=== PATIENT | female | born 1940 | race Caucasian/White ===

== ENCOUNTER → 2017-01-11 | Outpatient (CLI) | payer OTHER ==
[~2017-01-11] VITALS: Ht 160 cm; Wt 76.2 kg
[~2017-01-11] MED LIST: LOSARTAN-HCTZ1 EACH PO; MOBIC15 MG PO; OMEPRAZOLE 20 M20 M1 PO; TRULICITY0.75 MG/0. SQ; VENTOLIN HFA 1818 GM INH; VERAPAMIL ER180 M1 PO
--- NOTE | ~2017-01-11 | S ---
[facility] [place] [address] SURGICAL PATH RPT PROCEDURE Name: HAZEL BACK [id number] Admission: 01/11/17 Date of : 42 Discharge: Report #: [id number] Path Case #: [id number] PATHOLOGY REPORT COLLECTION DATE: 01/11/2017 RECEIVED DATE: 01/11/2017 SUBMITTING PHYS: Dr. Elijah Pope OTHER PHYS: Dr. Roddy Brizuela SPECIMEN(S) RECEIVED: A.Bx of gastritis * * * * * * * * * * * * FINAL DIAGNOSIS: Gastric mucosa, gastritis, endoscopic biopsy: - Two fragments showing moderate reactive gastropathy. - Negative for intestinal metaplasia or atrophy. - Remainder fragments showing no significant diagnostic abnormalities. - Negative for Helicobacter pylori. COMMENT: Helicobacter pylori immunohistochemical stain performed on block A1 negative. (IUV:csd; d/t: 01/14/2017) PATHOLOGIST: Nasreen Stevens M.D. REPORT ELECTRONICALLY SIGNED BY: Nasreen Stevens M.D. DATE/TIME: 01/14/2017 17:08 * * * * * * * * * * * * GROSS PATHOLOGY: Received in formalin labeled "Hazel Back and bx of gastritis," are 5 segments of quesada soft tissue measuring 2.0 x 0.4 x 0.2 cm in aggregate dimensions and ranging from 0.3 to 0.5 cm in maximum dimension. The specimen is submitted entirely in cassette A1. (TTL; 01/11/2017) CLINICAL HISTORY: Dysphagia INITIAL CPT CODE(S): A; 21318, 34197 Professional services performed by [facility] at [facility] [address], [place] [address] [facility] [address] [place] [address] SURGICAL PATH RPT PROCEDURE Name: HAZEL BACK Room #: REG MADELIN Hernandez.#: [id number] Admission: 01/11/17 Date of : 42 Discharge: Report #: [id number] Path Case #: [id number] Technical services performed by [facility] at [address] [place] [address], [facility] [address] [address]. [facility] [address] [address] PHONE: [phone] DIRECTOR: Junito Morgan M.D. * * * END OF REPORT * * *
--- NOTE | ~2017-01-11 | P ---
[facility] [place] [address] PROCEDURE REPORT Name: HAZEL BACK Room #: REG [facility]#: [id number] Admission: 01/11/17 Attend Phys: Elijah Pope MD Discharge: Date of : 42 Report #: [id number] THIS REPORT FOR: //name// CC: Roddy Pope DATE OF SERVICE: 01/11/2017 BRIEF HISTORY: The patient is a 76-year-old woman with recurrent solid food dysphagia and previous history of food bolus obstruction with obvious recurrent dysphagia for solids in particular meat. PREOPERATIVE DIAGNOSES: Solid food dysphagia and history of Schatzki ring. POSTOPERATIVE DIAGNOSES: 1. 5-6 cm sliding type hiatus hernia. 2. Moderate gastritis. 3. Schatzki ring. MEDICATIONS: Deep sedation with propofol per anesthesia. SPECIMEN: Biopsies of gastritis. ESTIMATED BLOOD LOSS: 3 mL. PROCEDURE: EGD with biopsy and dilation of esophagus over wire. FINDINGS: Prior to propofol sedation, procedure of upper endoscopy and dilation was reviewed with the patient as well as potential risks and its complications. She indicates she understands and desires to proceed. DESCRIPTION OF PROCEDURE: With the patient in left lateral decubitus position, Fuji video endoscope was inserted in the cervical esophagus under direct vision without difficulty. Examination of this organ to its entire length revealed normal esophageal mucosa throughout the esophagus. No ulcers or erosions were seen. There is no evidence of retained food within the esophagus. The distal esophagus was very tortuous. However, mucosa appears normal. She has a known Schatzki ring. A well-defined ring was not seen today, but this has been described in the past. It may not have been well seen because of the tortuosity of the distal esophagus. The esophagus is somewhat foreshortened due to the hiatus hernia. She has a moderately large hiatus hernia in the range of 5-6 cm. The top of the gastric folds is at about 32 cm. The mucosa and hernia is unremarkable. Scope was advanced distally into the stomach and was examined on end view as well as retroflexed views. The retroflexed position in the proximal stomach, no mass lesions were seen. Scattered hyperplastic appearing polyps [facility] [address] [place] [address] PROCEDURE REPORT Name: NAZANINHAZEL Ursula Room #: REG [facility] Mary.#: [id number] Admission: 01/11/17 Attend Phys: Elijah Pope MD Discharge: Date of : 42 Report #: [id number] were seen about the stomach. These have been noted before in the past and repeat biopsies were not obtained. However, examination of the gastric mucosa revealed a moderate antral gastritis, which was patchy in distribution. The mucosa was intact and not ulcerated or seemingly eroded, but she did have a significant gastritis and biopsies were obtained. The pylorus, duodenal bulb and postbulbar sweep were inspected and noted to be unremarkable. At that point, the scope was slowly withdrawn and careful circumferential views obtained. We also pass a guidewire through the biopsy channel and scope into the distal stomach. She was subsequently dilated over the wire with a 17 mm Savary dilator and no resistance was encountered. CONDITION OF THE PATIENT UPON DISCHARGE: Following procedure, the patient drowsy, aroused, conversant and will be discharged home when fully ambulatory. INSTRUCTIONS TO THE PATIENT AND FAMILY AT THE TIME OF DISCHARGE: The patient with findings as noted above. This has been recurring problem for her. She has been dilated in the past. Some of her dysphagia could be related to her large hiatus hernia and tortuosity in the distal esophagus. This also potentially could add to the potential of food bolus obstruction of the esophagus. She is to continue PPI for reflux disease. If symptoms are not well controlled, consideration of repair of hiatus hernia may be indicated in the future. It is noted esophageal manometry was attempted in the past but unable to be completed for inability to pass the probe into the stomach. This may be tortuous in the distal esophagus. Again, she should return to see me or nurse practitioner to follow up in the office if she continues to be symptomatic to further discuss these issues. She will otherwise return to care of Dr. Roddy Brizuela or return to see me as needed. <ELECTRONICALLY SIGNED> By: Elijah Pope MD 01/11/17 1615 0818 1213 Elijah Pope MD /nt
== END | disposition home or self-care (01) ==
LOC: GI 01-04 10:25
DX: K22.2 Esophageal obstruction (principal); K31.9 Disease of stomach and duodenum, unspecified; K44.9 Diaphragmatic hernia without obstruction or gangrene; K29.60 Other gastritis without bleeding; I10 Essential (primary) hypertension; K21.9 Gastro-esophageal reflux disease without esophagitis; E11.9 Type 2 diabetes mellitus without complications; J45.909 Unspecified asthma, uncomplicated; K27.9 Peptic ulcer, site unspecified, unspecified as acute or chronic, without hemorrhage or perforation; Z98.890 Other specified postprocedural states; Z85.828 Personal history of other malignant neoplasm of skin
CPT/HCPCS: 62110; 62900